=== PATIENT | female | born 1995 | race Two or more races ===

== ENCOUNTER → 2021-03-29 10:59 | Outpatient (BNVA) | payer OTHER, SELFPAY | PROVIDERS: Visit Provider Internal Medicine | DX: S67.192A Crushing injury of right middle finger, initial encounter (principal); W31.9XXA Contact with unspecified machinery, initial encounter | CPT/HCPCS: 73140; 99203 ==

== ENCOUNTER → 2021-04-02 11:39 | Outpatient (BNVA) | payer OTHER, SELFPAY | PROVIDERS: Visit Provider Physician Assistant Medical | DX: S67.192D Crushing injury of right middle finger, subsequent encounter (principal); S63.501D Unspecified sprain of right wrist, subsequent encounter; X58.XXXD Exposure to other specified factors, subsequent encounter | CPT/HCPCS: 99213 ==

== ENCOUNTER → 2021-04-08 08:34 | Outpatient (BNVA) | payer OTHER, SELFPAY | PROVIDERS: Visit Provider Physician Assistant Medical | DX: S67.192D Crushing injury of right middle finger, subsequent encounter (principal); S63.501D Unspecified sprain of right wrist, subsequent encounter; X58.XXXD Exposure to other specified factors, subsequent encounter | CPT/HCPCS: 99213 ==

== ENCOUNTER 2025-06-20 09:09 | Emergency (ER) | payer SELFPAY ==
--- NOTE | ~2025-06-20 | XR_ITS ---
EXAMINATION: XR CHEST 2 VIEWS HISTORY: cough, SOB COMPARISON: There are no prior studies available for comparison. FINDINGS: PA and lateral views of the chest are submitted. The lungs are expanded and clear. There is no pleural effusion, pneumothorax, or pulmonary vascular congestion. The heart is normal in size. The bones are intact. XR/XR chest 2V IMPRESSION: Normal examination of the chest. Electronically signed by: Cooper Hernandez MD 06/20/2025 09:36 AM EDT
[2025-06-20 09:14] VITALS: BP 115/75; PULSE 68; RESP 18; TEMP 36.8; O2SAT 97; BMI 30.9
[2025-06-20 10:01] LABS: COVID-19 Test Negative (Negative); IDNOW Serial# 152EDE1D; IDNOW Serial# 16C4AD1C; Influenza B2 Negative (Negative)
[2025-06-20 10:18] VITALS: BP 122/85; PULSE 71; RESP 18; TEMP 36.7; O2SAT 97
--- NOTE | 2025-06-20 10:19 | ED.URI ---
HPI - URI/Sore Throat General Chief Complaint: Upper Respiratory Symptoms Stated Complaint: Diff Breathing Time Seen by Provider: 06/20/25 09:59 Source: patient and old records reviewed Mode of arrival: ambulatory History of Present Illness ED Provider: MARYJO MILLER Narrative: 30 yo female with PMH of asthma who has been sick with cough, fevers, wheezing, runny nose after sick contacts at work for the past several days. She has diarrhea as well. She notes she has no inhalers or meds to treat her symptoms. She has never been admitted for asthma before. MD elicited complaint: fever, cough, sore throat and rhinorrhea Pertinent past history: asthma Onset (ago): day(s) (several) Consistency: constant Severity: moderate Description of mucous: clear Able to tolerate fluids by mouth: Yes Exacerbating factors: other (coughing) Relieving factors: nothing Context: sick contacts Associated symptoms: fever, chills, myalgias, rhinorrhea, sore throat, shortness of breath and diarrhea Treatments prior to arrival: none Related Data Previous Rx's ?Medication ?Instructions ?Recorded albuterol sulfate 90 mcg/actuation 2 puff inhalation QID PRN 06/20/25 aerosol inhaler shortness of breath or wheezing #6.7 grams prednisone 20 mg tablet 40 mg (2 x 20 mg) PO DAILY 4 days 06/20/25 #8 tabs Allergies Allergy/AdvReac Type Severity Reaction Status Date / Time Penicillins Allergy Intermediate Rash Verified 06/20/25 09:16 Review of Systems Review of Systems: Constitutional : positive Fever, positive Chills, positive fatigue, positive Malaise ENT/Mouth : positive sore throat, positive runny nose Eyes: No Discharge Cardiovascular : No Chest Pain, pos SOB, pos wheezing Respiratory : pos Cough, No Sputum Gastrointestinal : No Nausea, No Vomiting, pos Diarrhea Genitourinary : No Dysuria, No Urinary Frequency Musculoskeletal : positive Myalgia Skin : No rash Neuro : pos Headache Yes all other systems are reviewed and are negative PMFSH Past Medical History Attestation statement: The following information was validated with the patient. Source: old records reviewed Medical History Asthma Social History Social History Smoked in Last 30 Days: Yes Substance Use Type: Marijuana Advance Directives: No Advance Directives Information Provided: Yes Patient : No Physical Exam Vital Signs: Vital Signs: Last Vital Signs Temp 98.0 F 06/20/25 10:18 Pulse 71 06/20/25 10:18 Resp 18 06/20/25 10:18 BP 122/85 06/20/25 10:18 Pulse Ox 97 06/20/25 10:18 O2 Del Method Room Air 06/20/25 10:18 BMI result Body Mass Index 30.9 Appearance: Alert. Oriented X3. No acute distress. Eyes: Pupils equal, round and reactive to light. ENT: Pharynx mild erythema uvula is midline Neck: Normal inspection. Neck supple. CVS: Normal heart rate and rhythm. Pulses normal. Respiratory: No respiratory distress. Breath sounds very faint end exp wheezes Abdomen: Soft and nontender. Skin: Skin warm and dry. Normal skin color. Extremities: No lower extremity edema. Neuro: Oriented X 3. No motor deficit. No sensory deficit. Medications Administered Discontinued Medications Generic Name Dose Route Start Last Admin Trade Name Jlq PRN Reason Stop Dose Admin Prednisone 40 mg 06/20/25 09:59 06/20/25 10:21 Prednisone 20 Mg Tablet PO 06/20/25 10:00 40 mg ONCE ONE Administration Medical Decision Making Medical Decision Making [facility] Narrative: 30 yo female with PMH of asthma who has had viral symptoms for several days - patient is not toxic or hypoxic she has had multiple contacts at this time I am going to obtain viral panel and CXR will start on prednisone and inhaler. Anticipate DC home with supportive medications Differential Diagnosis Differential Diagnoses: The differential diagnosis associated with the presentation includes asthma, bronchitis, viral syndrome Admission/Observation Consideration of admission/observation: Escalation of care including admission/observation considered VS stable can be managed as outpatient Lab Data [facility] Lab Attestation statement: I reviewed the patient's lab results. Labs: Lab Results 06/20/25 Range/Units 09:25 COVID-19 (KELLY) Negative (Negative) COVID-19 Clin Com See Note Influenza Type A (TA) Negative (Negative) Influenza Type B (TA) Negative (Negative) Influenza A & B Note See Note S. pyogenes GrpA TA Negative (Negative) Independent Interpretation I performed an independent interpretation of an: Plain X-Ray (normal ) Radiology Impression Discussion of test interpretation with radiology: I have reviewed the radiologist's reading. Independent Historian Clinical information obtained from an independent historian. History obtained from or confirmed by: Spouse Prescription Management I considered prescription management with: Antibiotic and Other Discharge Plan Discharge Clinical Impression: Upper respiratory infection Qualifiers: URI type: unspecified URI Qualified Code(s): J06.9 - Acute upper respiratory infection, unspecified Patient Disposition: Home, Self-Care Instructions: Viral Syndrome (ED) Additional Instructions: normal chest xray no pneumonia negative for covid, flu, strep throat this is likely a virus it will take 1 week to get better and you may have a cough up to 4 weeks use inhaler 2 puffs every 4 hours for wheezing/shortness of breath take prednisone with food return for any worsening symptoms or concerns rest and stay hydrated alternate tylenol and motrin for pain control/fevers Prescriptions: New prednisone 20 mg tablet 40 mg PO DAILY 4 Days Qty: 8 0RF albuterol sulfate 90 mcg/actuation HFA aerosol inhaler 2 puff inhalation QID PRN (Reason: shortness of breath or wheezing) Qty: 6.7 0RF Stand Alone Forms: Work/School Release Print Language: Cameroonian
[2025-06-20 10:21] LABS: IDNOW Serial# 16C4AD1C; Strep A Nucleic Acid Negative (Negative)
[2025-06-20 10:27] VITALS: PULSE 75; RESP 16; O2SAT 97
[2025-06-20] MEDS: Albuterol Sulfate 90 MCG 8 GM INHALER 2 PUFF INHALE (10:29)
[2025-06-20 10:34] VITALS: BP 104/73; PULSE 75; RESP 16; TEMP 36.7; O2SAT 97
--- OUTSIDE RECORDS SUMMARY | 2025-06-20 10:39 | XMS_ITS | Clinical Summary ---
Author Organization [facility] Address [address] [place] [phone] Phone Care Team Providers Care Diamond Driller Helper Name Role Phone Physician, Pcp Unknown Primary Care Provider Elizabeth vailable Allergies Active Allergy Reactions Criticality Noted Date Comments Penicillins Shortness of breath High 10/28/2024 Medications No known medications Social History Tobacco Use Types Packs/Day Years Used Date Smoking Tobacco: Never Smokeless Tobacco: Never Tobacco Cessation:Counseling Given: Not Answered Alcohol Use Standard Drinks/Week Comments Never 0 (1 standard drink = 0.6 oz pur e alcohol) Comments No Sex and Gender Information Value Date Recorded Sex Assigned at Female 10/28/2024 5:13 PM EST Legal Sex Female 2:26 PM EST Gender Identity Female 10/28/2024 5:13 PM EST Sexual Orientation Straight 10/28/2024 5: 19 PM EST Obstetrics History Last Filed Vital Signs Vital Sign Reading Time Taken Comments Blood Pressure 137/69 11/20/2024 7:27 PM EST Pulse 73 11/20/2024 7:27 PM EST Temperature 36.8 C (98.2 F) 11/20/2024 7:27 PM EST Respiratory Rate 18 11/20/2024 7:27 PM EST Oxygen Saturation 97% 11/20/2024 7:27 PM EST Inhaled Oxygen Concentration - - Weight 77.1 kg (170 lb) 11/20/2024 11:12 AM EST Height 162.6 cm (5' 4 ) 11/20/2024 11:12 AM EST Body Mass Index 29.18 11/20/2024 11:12 AM EST Plan of Treatment Health Maintenance Due Date Last Done Comments DTaP,Tdap,and Td Vaccines (1 - Tdap) 2015 Hepatitis B Vaccines (1 of 3 - 19+ 3-dose series) 2015 Cervical Cancer Screening: P ap Smear 2017 Depression Screening 10/02/2024 HIV Screening 10/28/2024 Hepatitis C Screening 10/28/2024 Social Influencers of Health Screening 10/28/2024 COVID-19 Vaccine (2023-2 5 season) 2025 Influenza Vaccine (#1) 2025 HIB Vaccines Aged Out No longer eligi ble based on patient's age to complete this topic HPV Vaccines Aged Out No longer eligi ble based on patient's age to complete this topic Hepatitis A Vaccines Aged Out No long er eligible based on patient's age to complete this topic IPV Vaccines Aged Out No longer eligi ble based on patient's age to complete this topic MMR Vaccines Aged Out No longer eligi ble based on patient's age to complete this topic Meningococcal ACWY Vaccine Aged Out N o longer eligible based on patient's age to complete this topic Meningococcal B Vaccine Aged Out No l onger eligible based on patient's age to complete this topic Pneumococcal Vaccine: Pediat rics (0 to 5 Years) and At-Risk Patients (6 to 49 Years) Aged Out No longer eligible b ased on patient's age to complete this topic RSV Immunization Patients Un jeffrey 20 months Aged Out No longer eligible b ased on patient's age to complete this topic Varicella Vaccines Aged Out No longer eligible based on patient's age to complete this topic Insurance MEDICAID ADVANTAGE Care Teams Diamond Driller Helper Relationship Specialty Start Date End Date Physician, Pcp Unknown PCP - General 10/28/24
== END 2025-06-20 10:39 | disposition home or self-care (01) ==
PROVIDERS: Emergency Provider Emergency Medicine
DX: J06.9 Acute upper respiratory infection, unspecified (principal); R06.02 Shortness of breath; R50.9 Fever, unspecified; M79.10 Myalgia, unspecified site; R19.7 Diarrhea, unspecified; R09.89 Other specified symptoms and signs involving the circulatory and respiratory systems; Z11.52 Encounter for screening for COVID-19
CPT/HCPCS: 71046; 87502; 87635; 87651; 99284; 99285

== ENCOUNTER → 2025-06-20 09:19 | Outpatient (BNV) | payer SELFPAY | PROVIDERS: Emergency Provider Emergency Medicine; Visit Provider Radiology Diagnostic Radiology | DX: R05.9 Cough, unspecified (principal); R06.02 Shortness of breath | CPT/HCPCS: 71046 ==

== ENCOUNTER 2025-06-23 09:28 | Emergency (ER) | payer SELFPAY ==
--- NOTE | ~2025-06-23 | XR_ITS ---
EXAMINATION: XR CHEST CLINICAL INFORMATION: sob COMPARISON: 06/20/2025 TECHNIQUE: Frontal view of the chest was obtained. FINDINGS: No significant abnormality is noted involving the heart, lungs, mediastinum, bony thorax or soft tissues. XR/XR chest 1V IMPRESSION: No acute disease Electronically signed by: Cory Gregorio MD 06/23/2025 10:07 AM EDT
[2025-06-23 09:34] VITALS: BP 125/76; PULSE 80; RESP 16; TEMP 36.2; O2SAT 95; BMI 30.9
[2025-06-23 10:00] LABS: COVID-19 Test Negative (Negative); IDNOW Serial# 58CA691E
[2025-06-23 10:06] LABS: IDNOW Serial# 55D5AD1C; Influenza B2 Negative (Negative)
--- NOTE | 2025-06-23 10:29 | ED.URI ---
HPI - URI/Sore Throat General Chief Complaint: Upper Respiratory Symptoms Stated Complaint: SOb, coughing Time Seen by Provider: 06/23/25 10:25 Source: patient Mode of arrival: ambulatory Limitations: no limitations History of Present Illness ED Provider: HPI Narrative: 30-year-old woman with a history of asthma, smokes marijuana was seen here on the discharge with albuterol and steroids, states she continues to cough and wheeze. Continues to smoke. No fevers or chills reported Related Data Previous Rx's ?Medication ?Instructions ?Recorded albuterol sulfate 90 mcg/actuation 2 puff inhalation QID PRN 06/20/25 aerosol inhaler shortness of breath or wheezing #6.7 grams prednisone 20 mg tablet 40 mg (2 x 20 mg) PO DAILY 4 days 06/20/25 #8 tabs fluticasone furoate 100 1 inh inhalation DAILY #30 ea 06/23/25 mcg/actuation blister powder for inhalation Allergies Allergy/AdvReac Type Severity Reaction Status Date / Time Penicillins Allergy Intermediate Rash Verified 06/23/25 09:35 Review of Systems Constitutional: Constitutional: Reports as per [facility] Past Medical History Medical History Asthma Social History Social History Substance Use Type: Marijuana Advance Directives: No Advance Directives Information Provided: No Physical Exam Vital Signs: Vital Signs: Last Vital Signs Temp 97.2 F 06/23/25 09:34 Pulse 80 06/23/25 09:34 Resp 16 06/23/25 09:34 BP 125/76 06/23/25 09:34 Pulse Ox 95 06/23/25 09:34 O2 Del Method Room Air 06/23/25 09:34 BMI result Body Mass Index 30.9 Const: Other: Gen: ?Overall well-appearing patient CV: RRR, no obvious murmurs appreciated Resp: Moving air well, some bronchial breath sounds no wheezing Abd: ?Bowel sounds are present, no tenderness no rebound no rigidity MSK: FROM, strength 5/5 all extremities Skin: Warm, dry, intact, Neuro: ?Alert and oriented x3, moving upper and lower extremities symmetrically, no obvious facial asymmetry noted Medical Decision Making Medical Decision Making [facility] Narrative: 10:35 AM 06/23/2025 (Dr. Leon Jaramillo): I spoke to patient regarding her continued symptoms actually she is doing well she is not hypoxic, she is still have some coughing with bronchial breath sounds as she finished a course of antibiotics continues to smoke marijuana so we spoke about that, otherwise a chest x-ray and viral swab has been negative no indication for new blood work. I am going to recommend inhaled steroids as opposed to continue rescue inhaler use. And to follow up with the PCP. Differential Diagnosis Differential Diagnoses: The differential diagnosis associated with the presentation includes (Bronchitis, asthma, pneumonia, CHF, PE) Admission/Observation Consideration of admission/observation: Escalation of care including admission/observation considered Lab Data [facility] Lab Attestation statement: I reviewed the patient's lab results. Labs: Lab Results 06/23/25 Range/Units 09:42 COVID-19 ([facility]LLY) Negative (Negative) COVID-19 Clin Com See Note Influenza Type A (TA) Negative (Negative) Influenza Type B (TA) Negative (Negative) Influenza A & B Note See Note Independent Interpretation I performed an independent interpretation of an: Plain X-Ray (My independent chest xray interpretation: Lungs: Lungs are clear bilaterally without evidence of focal consolidation, pleural effusion, or pneumothorax. Cardiac silhouette is unremarkable, no obvious mediastinal widening, no obvious bony abnormalities such as fractures. Impression: Normal chest X-r) Radiology Impression Discussion of test interpretation with radiology: I have reviewed the radiologist's reading. Tests considered The following testing was considered but not selected: CBC Prescription Management I considered prescription management with: Antibiotic Discharge Plan Discharge Clinical Impression: Bronchitis Patient Disposition: Home, Self-Care Additional Instructions: Your cough we will continue to improve give it time it is not abnormal to be coughing for 2-3 weeks after initial infection, you had normal chest x-ray on and normal chest x-ray today, viral swab negative Do not smoke Albuterol use only if you are wheezing, you have not been wheezing right now and it sounds more like bronchial breath sounds which is due to inflammation and not asthma As far as steroid use I recommend inhaled steroids and please follow up with the PCP Prescriptions: New fluticasone furoate 100 mcg/actuation blister with device 1 inh inhalation DAILY Qty: 30 0RF No Action prednisone 20 mg tablet 40 mg PO DAILY 4 Days Qty: 8 0RF albuterol sulfate 90 mcg/actuation HFA aerosol inhaler 2 puff inhalation QID PRN (Reason: shortness of breath or wheezing) Qty: 6.7 0RF Print Language: Uruguayan
[2025-06-23 10:59] VITALS: BP 125/76; PULSE 80; RESP 16; TEMP 36.2; O2SAT 95
--- OUTSIDE RECORDS SUMMARY | 2025-06-23 11:39 | XMS_ITS | Clinical Summary ---
Author Organization [facility] Address [address] [place] [phone] Phone Care Team Providers Care Block Hand Name Role Phone Physician, Pcp Unknown Primary [...] this topic Insurance MEDICAID ADVANTAGE Care Teams Block Hand Relationship Specialty Start Date End Date Physician, Pcp Unknown PCP - General 10/28/24
== END 2025-06-23 11:02 | disposition home or self-care (01) ==
PROVIDERS: Emergency Provider Emergency Medicine
DX: J40 Bronchitis, not specified as acute or chronic (principal); R06.02 Shortness of breath; F12.929 Cannabis use, unspecified with intoxication, unspecified; Z03.818 Encounter for observation for suspected exposure to other biological agents ruled out
CPT/HCPCS: 71045; 87502; 87635; 99282; 99283

== ENCOUNTER → 2025-06-23 09:55 | Outpatient (BNV) | payer SELFPAY | PROVIDERS: Emergency Provider Emergency Medicine; Visit Provider Radiology Diagnostic Radiology | DX: R06.02 Shortness of breath (principal); R05.9 Cough, unspecified | CPT/HCPCS: 71045 ==